=== PATIENT | female | born 1970 | race Hispanic/Latino ===

== ENCOUNTER 2018-01-24 15:10 | Inpatient (IN) | payer OTHER ==
[~2018-01-24] VITALS: Ht 154.9 cm; Wt 111.1 kg
[2018-01-24] MEDS ORDERED: ONDANSETRON HCL INJ 2 MG/ML VIAL IV STA (15:34)
[2018-01-24] MEDS ORDERED: CLINDAMYCIN PHOS 900MG/ D5W 50 50 ML IV STA (15:34)
[2018-01-24] MEDS ORDERED: HYDROMORPHONE 1MG/1ML INJ IV STA (15:34)
[2018-01-24 16:54] LABS: BASOPHILS % 0.2 % (0.0-1.0); EOSINOPHILS # (AUTO) 0.2 (0.0-0.4); EOSINOPHILS % 1.3 % (0.0-6.0); HEMATOCRIT 35.7 % (34.2-44.1); LYMPHOCYTES % 11.5 % (18.0-39.1); MEAN CORPUSCULAR HEMOGLOBIN 24.5 pg (28-32); MEAN CORPUSCULAR HGB CONC 30.8 g/dL (31-35); MEAN CORPUSCULAR VOLUME 79.5 fL (81-99); MONOCYTES # (AUTO) 0.8 (0.2-0.8); MONOCYTES % 4.9 % (4.4-11.3); NEUTROPHILS # (AUTO) 13.8 (2.1-6.9); NEUTROPHILS % 81.9 % (38.7-80.0); PLATELET COUNT 308 x10e3/uL (140-360); RED BLOOD COUNT 4.49 x10e6/uL (3.6-5.1); RED CELL DISTRIBUTION WIDTH 16.9 % (11.7-14.4)
[2018-01-24 17:03] LABS: INR 1.21; PROTHROMBIN TIME 14.4 seconds (11.9-14.5)
[2018-01-24 17:04] LABS: PARTIAL THROMBOPLASTIN TIME 38.5 seconds (23.8-35.5)
[2018-01-24 17:10] LABS: ALANINE AMINOTRANSFERASE 57 IU/L (0-55); ALBUMIN 3.3 g/dL (3.5-5.0); ALBUMIN/GLOBULIN RATIO 0.8 (0.8-2.0); ALKALINE PHOSPHATASE 154 IU/L (40-150); ANION GAP 13.2 mmol/L (8-16); BLOOD UREA NITROGEN 13 mg/dL (7-26); BUN/CREATININE RATIO 17 (6-25); CALCIUM 9.2 mg/dL (8.4-10.2); CARBON DIOXIDE 26 mmol/L (22-29); CHLORIDE 101 mmol/L (98-107); CREATININE, SERUM 0.78 mg/dL (0.57-1.11); EST GLOMERULAR FILTRATION RATE > 60 ML/MIN (60-); GLUCOSE 114 mg/dL (74-118); POTASSIUM 3.2 mmol/L (3.5-5.1); SODIUM 137 mmol/L (136-145)
[2018-01-24] MEDS: SODIUM CHLORIDE 0.9% 1000ML 1,000 ML IV SCH (20:00)
[2018-01-24] MEDS: ONDANSETRON HCL INJ 2 MG/ML VIAL IV PRN (20:36)
[2018-01-24] MEDS: HYDROMORPHONE 1MG/1ML INJ IV PRN (20:36)
[2018-01-24 21:36] VITALS: BP 118/76
[2018-01-24 22:30] VITALS: BP 118/76
[2018-01-24] MEDS: PIPER-TAZ 3.375 GM 50 ML IV SCH (23:54)
[2018-01-25] VITALS: BP 113/69
[2018-01-25] MEDS: SODIUM CHLORIDE 0.9% 1000ML 1,000 ML IV SCH ×3 (00:35→09:16)
[2018-01-25] MEDS: HYDROMORPHONE 1MG/1ML INJ IV PRN ×4 (03:45→15:30)
[2018-01-25 04:00] VITALS: BP 145/95
[2018-01-25 05:08] LABS: BASOPHILS % 0.3 % (0.0-1.0); EOSINOPHILS # (AUTO) 0.2 (0.0-0.4); EOSINOPHILS % 1.2 % (0.0-6.0); HEMATOCRIT 30.7 % (34.2-44.1); HEMOGLOBIN 9.3 g/dL (12.0-16.0); LYMPHOCYTES # (AUTO) 1.9 (1.0-3.2); LYMPHOCYTES % 13.4 % (18.0-39.1); MEAN CORPUSCULAR HEMOGLOBIN 24.4 pg (28-32); MEAN CORPUSCULAR HGB CONC 30.3 g/dL (31-35); MEAN CORPUSCULAR VOLUME 80.6 fL (81-99); MONOCYTES # (AUTO) 0.9 (0.2-0.8); MONOCYTES % 5.9 % (4.4-11.3); NEUTROPHILS # (AUTO) 11.4 (2.1-6.9); NEUTROPHILS % 78.8 % (38.7-80.0); PLATELET COUNT 258 x10e3/uL (140-360); RED BLOOD COUNT 3.81 x10e6/uL (3.6-5.1); RED CELL DISTRIBUTION WIDTH 16.8 % (11.7-14.4)
[2018-01-25 05:33] LABS: ANION GAP 10.7 mmol/L (8-16); BLOOD UREA NITROGEN 9 mg/dL (7-26); BUN/CREATININE RATIO 13 (6-25); CALCIUM 8.8 mg/dL (8.4-10.2); CARBON DIOXIDE 29 mmol/L (22-29); CHLORIDE 101 mmol/L (98-107); EST GLOMERULAR FILTRATION RATE > 60 ML/MIN (60-); GLUCOSE 105 mg/dL (74-118); POTASSIUM 3.7 mmol/L (3.5-5.1); SODIUM 137 mmol/L (136-145)
[2018-01-25] MEDS: PIPER-TAZ 3.375 GM 50 ML IV SCH ×3 (05:44→17:26)
[2018-01-25 08:00] VITALS: BP 130/81
[2018-01-25] MEDS: VANCOMYCIN 1GM/NS 250 ML 250 ML IV SCH ×2 (09:16→17:26)
[2018-01-25 10:26] LABS: FERRITIN 88.82 ng/mL (4.63-204.00)
[2018-01-25] MEDS: ONDANSETRON HCL INJ 2 MG/ML VIAL IV PRN ×2 (10:42→15:30)
[2018-01-25] MEDS: ACETAMINOPHEN 325 MG TAB PO PRN (11:05)
[2018-01-25 12:00] VITALS: BP 133/72
--- NOTE | 2018-01-25 16:39 | History and Physical ---
MEDICINE ADMISSION HISTORY AND PHYSICAL DATE OF SERVICE: 01/25/[address] Emery Eagle for 01/25/2018. Starting tomorrow, Dr. Shane Ravi to begin covering for medicine. CHIEF COMPLAINT: Increasing pain to buttock area. HISTORY OF PRESENT ILLNESS: Ms. Fraga is a 47-year-old woman with morbid obesity, remote history of pneumonia and use of inhaler treatment for presumptive asthma diagnosis, who presents via the emergency department with complaints of 5-day onset of gradually worsening right buttock discomfort associated with worsening erythema, induration, pain and subjective fevers. In the emergency department, abscess was noted and initial drainage attempted. Antibiotics initiated included Zosyn and vancomycin. IV fluids started. The patient has noticed some mild dyspnea on exertion since the last couple of days. Denies chest pain, lightheadedness, palpitations or syncope, however. The shortness of breath seems to happen more when she is having subjective fevers. TWELVE-SYSTEM REVIEW: Negative except for as noted above. ALLERGIES: OXYCODONE. PAST MEDICAL HISTORY: Asthma, remote history of pneumonia. SURGICAL HISTORY: Gallbladder surgery, tonsillectomy, history of 2 vaginal deliveries and bilateral tubal ligation. SOCIAL HISTORY: Denies smoking, alcohol or drugs. FAMILY HISTORY: Noncontributory. PHYSICAL EXAMINATION VITAL SIGNS: Temperature 97.9, heart rate 103, blood pressure 145/95, O2 sat 98% at room air, respiratory rate 22, BMI 46.2. GENERAL: No acute distress. Alert, active. NECK: No JVD. No carotid bruit. CHEST: Clear to auscultation bilaterally. CARDIOVASCULAR: Regular rate and rhythm, normal S1 and S2. No S3 or S4. No murmurs or rubs. ABDOMEN: Soft, nontender and nondistended. Has erythema and induration with active drainage from right buttock abscess. EXTREMITIES: Trace edema of bilateral lower extremities. STUDIES: Reviewed. Sodium 137, potassium 3.7, chloride 101, bicarbonate 29, BUN 9, creatinine 0.7, glucose 105. White blood cells 14.4, hemoglobin 9.3, platelets 258, neutrophils 78.8. PT 14.4, PTT 38.5, INR 1.2. AST 80, ALT 57, total bilirubin 2, alkaline phosphatase 154. ASSESSMENT 1. Right buttock abscess and associated cellulitis. 2. Anemia. 3. Abnormal liver function tests. 4. Morbid obesity. 5. Dyspnea on exertion. RECOMMENDATIONS 1. Continue antibiotics with vancomycin and Zosyn and consult infectious disease. Await culture results. 2. Surgical consultation with Dr. Venegas to further evaluate need for additional debridement. 3. Patient denies any positive review of systems for inflammatory bowel disease. However, depending on findings and recommendations from surgery, might need further evaluation. 4. Anemia workup advised. Iron studies initiated. 5. Abnormal LFTs. Once infection clears, this will need further evaluation. 6. Obtain echocardiogram given shortness of breath. Suspect this is related to increasing metabolic demands from likely fevers in the setting of active infection associated with anemia. However, echo ordered to further assess. 7. Initiate DVT prophylaxis. 8. Transfer care and medicine coverage to Dr. Shane Ravi starting 01/26/2018. Job#: [id number]
[2018-01-25 20:14] VITALS: BP 154/86
[2018-01-25 20:15] VITALS: BP 154/86
[2018-01-26] MEDS: PIPER-TAZ 3.375 GM 50 ML IV SCH ×4 (00:16→17:13)
[2018-01-26 00:19] VITALS: BP 140/71
[2018-01-26] MEDS: ACETAMINOPHEN 325 MG TAB PO PRN ×2 (00:34→09:57)
[2018-01-26] MEDS: SODIUM CHLORIDE 0.9% 1000ML 1,000 ML IV SCH ×3 (02:50→17:13)
[2018-01-26 04:00] VITALS: BP 117/72
[2018-01-26 06:01] LABS: BASOPHILS % 0.3 % (0.0-1.0); EOSINOPHILS # (AUTO) 0.3 (0.0-0.4); HEMATOCRIT 30.8 % (34.2-44.1); HEMOGLOBIN 9.3 g/dL (12.0-16.0); LYMPHOCYTES # (AUTO) 1.6 (1.0-3.2); LYMPHOCYTES % 17.1 % (18.0-39.1); MEAN CORPUSCULAR HEMOGLOBIN 24.3 pg (28-32); MEAN CORPUSCULAR HGB CONC 30.2 g/dL (31-35); MEAN CORPUSCULAR VOLUME 80.4 fL (81-99); MONOCYTES # (AUTO) 0.5 (0.2-0.8); MONOCYTES % 5.6 % (4.4-11.3); NEUTROPHILS # (AUTO) 6.9 (2.1-6.9); NEUTROPHILS % 73.5 % (38.7-80.0); PLATELET COUNT 297 x10e3/uL (140-360); RED BLOOD COUNT 3.83 x10e6/uL (3.6-5.1); RED CELL DISTRIBUTION WIDTH 16.8 % (11.7-14.4)
[2018-01-26 06:24] LABS: ANION GAP 11.2 mmol/L (8-16); BLOOD UREA NITROGEN 5 mg/dL (7-26); BUN/CREATININE RATIO 8 (6-25); CALCIUM 8.8 mg/dL (8.4-10.2); CARBON DIOXIDE 28 mmol/L (22-29); CHLORIDE 104 mmol/L (98-107); CREATININE, SERUM 0.66 mg/dL (0.57-1.11); EST GLOMERULAR FILTRATION RATE > 60 ML/MIN (60-); GLUCOSE 106 mg/dL (74-118); POTASSIUM 3.2 mmol/L (3.5-5.1); SODIUM 140 mmol/L (136-145)
[2018-01-26 08:00] VITALS: BP 150/82
[2018-01-26] MEDS: VANCOMYCIN 1GM/NS 250 ML 250 ML IV SCH (09:00)
[2018-01-26] MEDS ORDERED: POTASSIUM CHLORIDE 20 MEQ TAB CR PO NR (12:15)
[2018-01-26] MEDS: HYDROMORPHONE 1MG/1ML INJ IV PRN (15:53)
[2018-01-26] MEDS: ONDANSETRON HCL INJ 2 MG/ML VIAL IV PRN (15:53)
[2018-01-26 16:00] VITALS: BP 166/102
[2018-01-26] MEDS ORDERED: AUGMENTIN 500-1 EACH PO (18:14)
[2018-01-26] MEDS ORDERED: VANCOMYCIN 1GM/NS 250 ML 250 ML IV SCH (21:00)
--- NOTE | 2018-01-26 22:58 | Discharge Summary ---
ADMITTING PHYSICIAN: Dr. Emery Eagle PRIMARY CARE DOCTOR: Dr. Jerod Hammonds PRIMARY DIAGNOSIS: Right buttock cellulitis with abscess. SECONDARY DIAGNOSES: Include: 1. Anemia. 2. Morbid obesity. 3. Asthma. 4. Elevated liver function tests. 5. Mild hypoalbuminemia. HOSPITAL COURSE: Ms. Fraga is a pleasant 47-year-old female with worsening abscess and cellulitis. She presents where antibiotics are given. She requires I and D by surgeon, Dr. Mirza Venegas. MSSA was found on cultures and it was sensitive to multiple antibacterials. Patient was seemed to improve. Subsequently, white count went from 16,000 to 9.4. She was allowed for outpatient followup. She was given Augmentin for outpatient use. MEDICATIONS AT DISCHARGE: See discharge medication record for details. ACTIVITY AT DISCHARGE: As tolerated. SPECIAL INSTRUCTIONS: Packing per surgeon and close followup per surgeon. DIET: Regular diet. FOLLOWUP: Dr. Newsome at [facility], Dr. Venegas of surgery. Greater than 30 minutes in care and coordination for discharge today. Multiple interventions. FEDE CALDERON MD Job#: [id number]
== END 2018-01-26 18:41 | disposition home or self-care (01) | DRG 603 ==
LOC: ER 15:10 → ERHOLD 18:50 → MED/SURG2 21:15
PROVIDERS: ADMIT Internal Medicine; ATTEND Internal Medicine
PROC: 0J990ZX Drainage of Buttock Subcutaneous Tissue and Fascia, Open Approach, Diagnostic (ICD-10-PCS; principal; 2018-01-24)
DX: L02.31 Cutaneous abscess of buttock (principal); Z68.41 Body mass index [BMI] 40.0-44.9, adult; E66.9 Obesity, unspecified; D64.9 Anemia, unspecified; R06.00 Dyspnea, unspecified
CPT/HCPCS: 36415; 80048; 80053; 82728; 83540; 84466; 85025; 85610; 85730; 87071; 87186; 87205; 93005; 93306; 96361; 99284; J1170; J2405; J2543; J3370; J7030